=== PATIENT | female | born 1965 | race Caucasian/White ===

== ENCOUNTER 2016-09-18 05:47 | Day surgery (SDC) | payer OTHER ==
[2016-09-13 14:20] VITALS: BMI 37.3
[~2016-09-18 05:47] MED LIST: TETRACAINE 0.5% OPHTH (PF) DROPS 4 ML BTL OP ONE
[2016-09-18] MEDS ORDERED: MIDAZOLAM 2 MG/2 ML VIAL IV PRN (06:01)
[2016-09-18] MEDS ORDERED: DEXAMETHASONE SOD PHOSPHATE 10 MG/ML 1 ML VIAL IV ONE (06:01)
[2016-09-18] MEDS ORDERED: ONDANSETRON 4 MG/2 ML VIAL IVP ONE (06:01)
[2016-09-18] MEDS ORDERED: LACTATED RINGERS 1,000 ML IV SCH (06:01)
[2016-09-18] MEDS ORDERED: SCOPOLAMINE 1.5MG/72HR PATCH TRANSDERM ONE (06:01)
[2016-09-18] MEDS ORDERED: LIDOCAINE 1% 20 ML VIAL (10MG/ML) FOR IV START INTRADERMA PRN (06:01)
[2016-09-18] MEDS: CYCLOPENTOLATE 1% OPHTH SOLN 2 ML BTL OP ONE ×4 (06:14→06:33)
[2016-09-18 06:17] VITALS: RESP 16; TEMP 97.5
[2016-09-18] MEDS: PHENYLEPHRINE 2.5% OPHTH DRP 2ML OP NR ×3 (06:17→06:33)
[2016-09-18 06:41] LABS: Glucose,Whole Blood 292 mg/dL (75-99)
[2016-09-18] MEDS ORDERED: INSULIN LISPRO (humaLOG) 300 UNIT/3 ML VIAL SQ ONE (07:18)
[2016-09-18] MEDS ORDERED: BALANCED SALT IRRIG SOLN COMB2 15 ML IRRIG.SOLN IRRIGATION ONE ×2 (07:25→08:05)
[2016-09-18] MEDS ORDERED: LIDOCAINE 1% (PF) 10MG/ML VIAL MISCELLANE ONE ×2 (07:25→08:05)
[2016-09-18] MEDS ORDERED: HYALURONATE SODIUM INTRAOCULAR 1 EACH SYRINGE (12MG/ML) INTRAOCULA ONE ×2 (07:25→08:05)
[2016-09-18] MEDS: MOXIFLOXACIN HCL 0.5% DROPS 3 ML BTL OP ONE ×2 (07:26→08:05)
[2016-09-18] MEDS: TIMOLOL 0.5% OPHTH SOLN (PF) 0.2 ML DROPERETTE OP ONE ×2 (07:27→08:05)
[2016-09-18] MEDS ORDERED: fentaNYL (PF) 50 MCG/ML 2 ML AMP ONE (07:47)
[2016-09-18] MEDS ORDERED: MIDAZOLAM 2 MG/2 ML VIAL ONE (07:47)
[2016-09-18] MEDS ORDERED: EPINEPHrine (PF) 0.3 ML in BALANCED SALT IRRIG SOLN COMB2 500 ML IRRIGATION ONE ×4 (07:50)
[2016-09-18] MEDS ORDERED: TETRACAINE 0.5% OPHTH DROPS 15 ML BTL RIGHT EYE ONE (08:10)
[2016-09-18 08:40] LABS: Glucose,Whole Blood 316 mg/dL (75-99)
--- NOTE | 2016-09-18 08:46 | P.OP ---
Date of Procedure: 09/18/16 Preoperative Diagnosis: NS CS & PSC reg astigmatism Postoperative Diagnosis: same Procedure(s) Performed: PIOL, OD Implants: [id number] 16.0 D Anesthesia: MAC Surgeon: Jorge De La Cruz Estimated Blood Loss (ml): 0 Pathology: none sent Condition: stable Disposition: same day Indications for Procedure: blurry vision Operative Findings: No complications Description of Procedure:
[2016-09-18 09:01] VITALS: BP 139/84; PULSE 104
--- NOTE | 2016-09-21 14:04 | OP ---
PROCEDURE: Phacoemulsification of cataract and intraocular lens implant of the right eye. PREOPERATIVE DIAGNOSES: Nuclear sclerosis, cortical sclerosis, posterior subcapsular cataract and regular astigmatism. POSTOPERATIVE DIAGNOSES: Nuclear sclerosis, cortical sclerosis, posterior subcapsular cataract and regular astigmatism. SURGEON: Dr. Jorge De La Cruz ANESTHESIA: Topical. ESTIMATED BLOOD LOSS: None. SPECIMEN TAKEN: None. After obtaining the appropriate consent the patient was brought to the operating room. There she was asked to sit upright and the axis of 0 and 180 degrees were marked with a gentian kavon marker on the patient's corneal limbus. She was then placed in the proper supine supine position under cardiac monitoring, prepped and draped in the usual sterile manner. She was approached from her 12 o'clock position using previously acquired corneal topography information. A corneal axis marker was used to identify the axis of 88 degrees and marked her corneal limbus. Then at the 1 o'clock position a 1.1 mm stab blade was used to create a paracentesis port. Through this opening opening 1% Xylocaine MPF 50/50 mixed with balanced salt solution was injected into the anterior chamber. This was followed by stabilization of the anterior chamber with Amvisc. At the 12 o'clock position a 2.5 mm keratome was used to create a self sealing corneal flap incision in a Langerman's fashion. Through this opening a cystotome was introduced to begin a continuous tear capsulorrhexis which was completed using the Utrata forceps. Hydrodissection and hydrodelineation of the lens was accomplished with balanced salt solution. Phacoemulsification of the lens utilizing phaco chop was accomplished in 21.71 seconds at 7% power. Additional Xylocaine MPF was instilled into the anterior chamber. This was followed by removal of the remaining cortex with irrigation and aspiration as well as careful polishing of the posterior capsule in capsule vacuum mode. Additional Amvisc was then used to stabilize the capsular bag and an [id number] diopter posterior chamber intraocular lens was then inserted into the capsular bag without difficulty. The remaining viscoelastic was then removed from in and around the intraocular lens and the lens was rotated into its final position in alignment with the 88 degree giana which was previously left on the patient's cornea. ReSure was then used to secure the superior limbus incision. She then received 2 drops of 0.5% Timolol followed by 2 drops of Vigamox. She was then lightly patched and shielded in the usual manner. There were no difficulties encountered during the procedure. She tolerated the procedure well and she returned to outpatient recovery in good condition. DAO
== END 2016-09-18 09:22 | disposition home or self-care (01) ==
LOC: OR 05:47
PROVIDERS: ATTEND Ophthalmology
DX: H25.11 Age-related nuclear cataract, right eye (principal); H25.011 Cortical age-related cataract, right eye; E11.39 Type 2 diabetes mellitus with other diabetic ophthalmic complication; E11.65 Type 2 diabetes mellitus with hyperglycemia; H52.223 Regular astigmatism, bilateral; Z96.1 Presence of intraocular lens; H52.13 Myopia, bilateral; H52.32 Aniseikonia; H26.492 Other secondary cataract, left eye; Z79.84 Long term (current) use of oral hypoglycemic drugs; Z79.4 Long term (current) use of insulin; Z79.899 Other long term (current) drug therapy
CPT/HCPCS: 66984; J2250; J1100; J2405; J0171; J3010; J2001

== ENCOUNTER → 2017-02-19 | Outpatient (CLI) | payer OTHER ==
--- NOTE | 2017-02-19 11:47 | XR ---
EXAMINATION TYPE: XR calcaneus 2V BILATERAL DATE OF EXAM: 02/19/2017 COMPARISON: NONE HISTORY: Bilateral heel pain with heel spurs per patient. TECHNIQUE: 2 views of bilateral calcanei are obtained. FINDINGS: There is no acute fracture or dislocation in either calcaneus. Boehler's angle is maintaine d bilaterally. There is mild spurring anterior calcaneal cuboid articulation bilaterally. There is ti ny inferior calcaneal spur bilaterally. There is moderate superior spurring bilaterally with some additional ossification along course of dis paradise Achilles tendon. There is Jenny deformity bilaterally, left slightly more prominent than right. Prominent soft tissue swelling posterior superior calcaneal level is present bilaterally could refle ct distal Achilles tendon thickening. IMPRESSION: As above.
== END | disposition home or self-care (01) ==
LOC: RADXRMAIN 11:11
PROVIDERS: ATTEND Physician Assistant
DX: M79.671 Pain in right foot (principal); M79.672 Pain in left foot

== ENCOUNTER → 2017-06-18 | Outpatient (CLI) | payer OTHER ==
--- NOTE | 2017-06-18 08:50 | MR ---
EXAMINATION TYPE: MR lumbar spine wo con DATE OF EXAM: 06/18/2017 COMPARISON: 08/19/2014 HISTORY: Back pain TECHNIQUE: T1 and T2 axial and sagittal images of the lumbar spine are submitted. FINDINGS: There is no abnormal signal seen within the visualized spinal cord or paraspinal soft tissu es. Loss the normal lumbar lordosis noted. At T12-L1 there is an annular tear and tiny central disc protrusion with facet arthropathy. No canal stenosis or foraminal encroachment. At L1-2 there is facet arthropathy and diffuse circumferential disc bulging with mild effacement of t hecal sac. There is borderline to mild central stenosis and mild bilateral foraminal encroachment. At L2-3 there is diffuse disc bulging with a more focal broad-based central disc herniation resulting in severe compression of the thecal sac. Hypertrophy of the ligamentum flavum and facets contribute to severe canal stenosis and bilateral foraminal encroachment. At L3-4 there is diffuse disc bulging with a more focal central and right paracentral disc herniation . Advanced facet arthropathy and hypertrophy ligamentum flavum contribute to severe central stenosis and bilateral foraminal encroachment. At L4-5 there is degenerative disc disease with advanced facet arthropathy. Broad-based central and l eft paracentral disc protrusion resulting in moderate canal stenosis and mild bilateral foraminal enc roachment. Hypertrophy of the ligamentum flavum noted. At L5-S1 there is severe degenerative disc disease. There is a focal right paracentral disc small her niation which encroaches upon the right exiting nerve root. Mild bilateral foraminal encroachment. Di scogenic marrow changes are seen. Spurring is noted anteriorly. IMPRESSION: 1. Multilevel degenerative disc disease with multilevel hypertrophic changes and disc herniations res ulting in multilevel canal stenosis and foraminal encroachment with the most marked findings seen at L3-4 and L2-3.
== END | disposition home or self-care (01) ==
LOC: RADMRIMAIN 07:54
PROVIDERS: ATTEND Family Medicine
DX: M48.061 Spinal stenosis, lumbar region without neurogenic claudication (principal); M51.26 Other intervertebral disc displacement, lumbar region; M51.36 Other intervertebral disc degeneration, lumbar region
CPT/HCPCS: 72148

== ENCOUNTER → 2019-02-17 | Outpatient (CLI) | payer OTHER ==
[2019-02-17 13:03] LABS: Glucose,CSF 104 mg/dL (40-70); Total Protein,CSF 45 mg/dL (12-60)
[2019-02-17 14:42] LABS: Appearance,CSF Clear; CSF Tube Number 4; Nucleated Cells, CSF 0 u/L (0-5); Red Blood Cell,CSF 0 u/L (0-10)
[2019-02-19 13:03] LABS: IgG - CSF 2.5 mg/dL (0.0 - 3.4); IgG/Albumin Index (CSF) 0.51 (0.00 - 0.77)
== END | disposition home or self-care (01) ==
LOC: LABWHC1 08:15
PROVIDERS: ATTEND Psychiatry & Neurology Pain Medicine
DX: H53.8 Other visual disturbances (principal); R90.89 Other abnormal findings on diagnostic imaging of central nervous system; R42 Dizziness and giddiness
CPT/HCPCS: 36415; 82040; 82042; 82784; 82945; 83916; 84157; 87801; 88108; 89050

== ENCOUNTER → 2019-09-21 | Outpatient (CLI) | payer OTHER ==
[2019-09-21 18:25] LABS: HIV 2 AB Non-Reactive (Non-Reactive); HIV AB P24 Non-Reactive (Non-Reactive); HIV P24 AG Non-Reactive (Non-Reactive)
[2019-09-21 18:56] LABS: Hepatitis A Antibody IgM Non-Reactive (Non-Reactive); Hepatitis B Core IgM Non-Reactive (Non-Reactive); Hepatitis B Surface Antigen Non-Reactive (Non-Reactive); Hepatitis C IgG Antibody Non-Reactive (Non-Reactive)
== END | disposition home or self-care (01) ==
LOC: LABWHC1 08:12
PROVIDERS: ATTEND Psychiatry & Neurology Neurology
DX: R53.83 Other fatigue (principal)
CPT/HCPCS: 36415; 80074; 87390

== ENCOUNTER → 2020-05-12 | Outpatient (CLI) | payer OTHER ==
--- NOTE | 2020-05-16 07:18 | MM ---
Reason for exam: screening (asymptomatic). Last mammogram was performed 5 years and 6 months ago. History: Patient is postmenopausal. Took hormonal contraceptives for 10 years. Physical Findings: A clinical breast exam by your physician is recommended on an annual basis and results should be correlated with mammographic findings. MG 3D Screening Mammo W/Cad Bilateral CC and MLO view(s) were taken. Prior study comparison: November 23, 2014, bilateral MG screening mammo w CAD. There are scattered fibroglandular densities. There is chronic nodularity bilaterally. No significant changes when compared with prior studies. ASSESSMENT: Benign, BI-RAD 2 RECOMMENDATION: Routine screening mammogram of both breasts in 1 year.
== END | disposition home or self-care (01) ==
LOC: RADMAMWWP 15:46
PROVIDERS: ATTEND Family Medicine
DX: Z12.31 Encounter for screening mammogram for malignant neoplasm of breast (principal)
CPT/HCPCS: 77063; 77067

== ENCOUNTER → 2024-02-05 | Outpatient (CLI) | payer OTHER | END | disposition home or self-care (01) | LOC: LABWHC1 08:41 | PROVIDERS: ATTEND Nurse Practitioner Gerontology | DX: E11.65 Type 2 diabetes mellitus with hyperglycemia (principal) | CPT/HCPCS: 36415; 83036 ==